=== PATIENT | male | born 1980 | race Caucasian/White ===

== ENCOUNTER 2017-02-23 22:49 | Emergency (ER) | payer SELFPAY ==
[~2017-02-23] VITALS: Ht 177.8 cm; Wt 102.0 kg
[~2017-02-23 22:49] MED LIST: PROM25TA5 PO; VITAMINS
[2017-02-23 22:54] VITALS: BP 162/102; PULSE 102; RESP 18; TEMP 98.5; O2SAT 98
[2017-02-23] MEDS ORDERED: SODIUM CHLOR 0.9% 1000 ML INJ 1,000 ML IV SCH (23:05)
[2017-02-23] MEDS ORDERED: FISH1000 PO (23:08)
[2017-02-23] MEDS ORDERED: MULTTAB67 PO (23:08)
[2017-02-23] MEDS ORDERED: VITA100T15 PO (23:09)
[2017-02-23] MEDS ORDERED: POTA99TA4 PO (23:09)
[2017-02-23] MEDS ORDERED: LEDI1TAB PO (23:09)
[2017-02-23] MEDS ORDERED: SODIUM CHLORIDE 0.9% FLUSH 10 ML FLUSH IV FLUSH PRN (23:15)
--- NOTE | 2017-02-23 23:18 | PD ---
HPI Chief Complaint: Respiratory Symptoms Time Seen by Provider: 23:00 Travel History International Travel<30 days: No Contact w/Intl Traveler<30days: No Traveled to known affect area: No History of Present Illness HPI 37-year-old male reports a sense of generalized fatigue and "not feeling right" for weeks. He is currently taking anti-hepatitis C virus medication. He orders it from [facility]. Part of his symptomology seems to include breathing difficulties, somewhat nonspecific, which is reported to be residual from exposure to rain and a subsequent URI type process. No abdominal pain. He does not have abdominal pain. He wonders if he might still be positive for hepatitis C. PFSH Past Medical History Hx Anticoagulant Therapy: No Arthritis: No Asthma: No Blood Disorders: No Anxiety: Yes Depression: Yes Heart Rhythm Problems: No Cancer: No Cardiovascular Problems: Yes (HTN) High Cholesterol: Yes Chemotherapy: No Chest Pain: No Congestive Heart Failure: No COPD: No Cerebrovascular Accident: No Diabetes: No Diminished Hearing: No Endocrine: No Gastrointestinal Disorders: Yes GERD: Yes Genitourinary: No Hepatitis: Yes (HEP C) Hiatal Hernia: No Hypertension: Yes Kidney Stones: Yes Musculoskeletal: No Neurologic: Yes Psychiatric: Yes Reproductive: No Respiratory: Yes Migraines: No Radiation Therapy: No Renal Failure: No Seizures: No Sickle Cell Disease: No Sleep Apnea: No Thyroid Disease: No Ulcer: No Past Surgical History Abdominal Surgery: Yes (INGUINAL HERNIA REPAIR) Appendectomy: Yes Cardiac Surgery: No Endocrine Surgery: No Eye Surgery: No Genitourinary Surgery: No Gynecologic Surgery: No Neurologic Surgery: Yes (SKULL FRACTURE REPAIR A CHILD) Oral Surgery: Yes (04/2008 TOOTH PULLED) Thoracic Surgery: No Other Surgery: Yes (RT HERNIA REPAIR) Social History Alcohol Use: Yes (QUIT) Tobacco Use: Yes (QUIT 2 YEARS AGO) Substance Use: Yes (Marijuana 3 days ago) Allergies-Medications (Allergen,Severity, Reaction): Coded Allergies: codeine (Unverified Allergy, Intermediate, ITCHING & SWELLING,HIVES, ) Reported Meds & Prescriptions Reported Meds & Active Scripts Active Reported Potassium 99 Mg Tablet 99 Mg PO DAILY Harvoni 90-400 mg Tablet (Ledipasvir/Sofosbuvir) 1 Each Tablet 1 Tab PO DAILY Vitamin B12 (Cyanocobalamin) 100 Mcg Tab 100 Mcg PO DAILY Fish Oil ([place]-3 Fatty Acids) 1,000 Mg Cap 1,000 Mg PO DAILY Multiple Vitamin 1 Tab 1 Tab PO DAILY Review of Systems Except as stated in HPI: all other systems reviewed are Neg Physical Exam Narrative GENERAL: Well-nourished well-developed 37-year-old male no acute distress speaking full sentences SKIN: Warm and dry. HEAD: Atraumatic. Normocephalic. EYES: Pupils equal and round. No scleral icterus. No injection or drainage. ENT: No nasal bleeding or discharge. Mucous membranes pink and moist. NECK: Trachea midline. No JVD. CARDIOVASCULAR: Regular rate and rhythm. RESPIRATORY: The lungs are clear. There is no tachypnea. GASTROINTESTINAL: Abdomen soft, non-tender, nondistended. Hepatic and splenic margins not palpable. MUSCULOSKELETAL: Extremities without clubbing, cyanosis, or edema. No obvious deformities. NEUROLOGICAL: Awake and alert. No obvious cranial nerve deficits. Motor grossly within normal limits. Five out of 5 muscle strength in the arms and legs. Normal speech. PSYCHIATRIC: Appropriate mood and affect; insight and judgment normal. Data Data Last Documented VS Vital Signs Date Time Temp Pulse Resp B/P Pulse Ox O2 Delivery O2 Flow Rate FiO2 02/23/17 23:45 98 Room Air 02/23/17 23:09 18 02/23/17 22:54 98.5 102 162/102 Vital signs reviewed Orders Complete Blood Count With Diff (02/23/17 23:05) Comprehensive Metabolic Panel (02/23/17 23:05) Iv Access Insert/Monitor (02/23/17 23:05) Ecg Monitoring (02/23/17 23:05) Oximetry (02/23/17 23:05) Sodium Chlor 0.9% 1000 Ml Inj (Ns 1000 M (02/23/17 23:05) Sodium Chloride 0.9% Flush (Ns Flush) (02/23/17 23:15) Chest, Single Ap (02/23/17 ) MDM Medical Decision Making Medical Screen Exam Complete: Yes Emergency Medical Condition: Yes Medical Record Reviewed: Yes Differential Diagnosis URI, liver failure, kidney failure, dehydration, anemia, hepatitis Narrative Course Initial work up started. Case d/w Dr Nevarez at 1153pm. Diagnosis Primary Impression: Malaise Referrals: Primary Care Physician 2 days Additional Instructions: You have a choice when it comes to health care, and we are glad that you chose [facility]. Hopefully, we have met your expectations on today's visit. You are welcome to return to [facility] at any time, as we are committed to meeting the health care needs of our community. Med/Other Pt SpecificInfo: No Change to Meds Disposition: 01 DISCHARGE HOME Condition: Michael Hopkins MD Feb 23, 2017 23:18
[2017-02-23 23:45] VITALS: O2SAT 98
[2017-02-24 00:14] LABS: CHLORIDE 103 MEQ/L (98-107); POTASSIUM 3.2 MEQ/L (3.5-5.1); SODIUM (NA) 139 MEQ/L (136-145)
--- NOTE | 2017-02-24 00:14 | RADRPT ---
EXAM DATE/TIME: 02/24/2017 00:00 [facility] COMPARISON: CHEST SINGLE AP, April 11, 2011, 18:53. INDICATIONS : Cough MEDICAL HISTORY : Hypertension. Hepatitis C. SURGICAL HISTORY : Appendectomy. Inguinal hernia repair.8 ENCOUNTER: Initial ACUITY: 2 weeks PAIN SCORE: 0/10 LOCATION: Bilateral chest FINDINGS: A single view of the chest demonstrates symmetric hypoinflation with some minimal atelectatic changes above the left hemidiaphragm. No confluent infiltrate or effusion. Accounting for the degree of insp iration, heart size is normal. Osseous structures are intact. CONCLUSION: 1. Hypoinflation with minimal atelectatic changes of the left hemidiaphragm. 2. Lungs are otherwise clear. Heart size is normal. Howard Aguirre MD on February 24, 2017 at 0:11 Board Certified Radiologist. This report was verified electronically.
[2017-02-24 00:17] LABS: AUTOMATED NEUTROPHIL # 4.8 TH/MM3 (1.8-7.7); BASOPHIL # 0.2 TH/MM3 (0-0.2); BASOPHIL % 2.1 % (0.0-2.0); EOSINOPHIL # 0.2 TH/MM3 (0-0.4); EOSINOPHIL % 2.1 % (0.0-4.0); HEMATOCRIT 48.8 % (39.0-51.0); HEMO FLAGS DIFF FINAL; LYMPHOCYTE # 2.5 TH/MM3 (1.0-4.8); MEAN CELL VOLUME 95.1 FL (80.0-100.0); MEAN CORPUSCULAR HEMOGLOBIN 31.7 PG (27.0-34.0); MEAN CORPUSCULAR HGB CONC 33.4 % (32.0-36.0); MONO % 6.7 % (0.0-8.0); NEUT % 59.1 % (16.0-70.0); PLATELET COUNT 189 TH/MM3 (150-450); RED BLOOD COUNT 5.13 MIL/MM3 (4.50-5.90); WHITE BLOOD COUNT 8.2 TH/MM3 (4.0-11.0)
[2017-02-24 00:18] LABS: ANION GAP 8 MEQ/L (5-15); BICARBONATE 28.4 MEQ/L (21.0-32.0); BLOOD UREA NITROGEN 11 MG/DL (7-18)
[2017-02-24 00:21] LABS: ALT (GPT) 50 U/L (12-78); AST (GOT) 29 U/L (15-37); GLOMERULAR FILTRATION RATE 69 ML/MIN (>89)
[2017-02-24 00:22] LABS: TOTAL BILIRUBIN ADULT 0.6 MG/DL (0.2-1.0)
[2017-02-24 00:23] LABS: ALKALINE PHOSPHATASE 72 U/L (45-117)
--- NOTE | 2017-02-24 01:29 | PD ---
Physical Exam Date Seen by Provider: Feb 24, 2017 Time Seen by Provider: 00:30 Narrative Accepted in transfer of care from Dr. Carson Data Data Last Documented VS Vital Signs Date Time Temp Pulse Resp B/P Pulse Ox O2 Delivery O2 Flow Rate FiO2 02/24/17 01:54 91 16 144/96 96 02/23/17 23:45 Room Air 02/23/17 22:54 98.5 Orders Complete Blood Count With Diff (02/23/17 23:05) Comprehensive Metabolic Panel (02/23/17 23:05) Iv Access Insert/Monitor (02/23/17 23:05) Ecg Monitoring (02/23/17 23:05) Oximetry (02/23/17 23:05) Sodium Chlor 0.9% 1000 Ml Inj (Ns 1000 M (02/23/17 23:05) Sodium Chloride 0.9% Flush (Ns Flush) (02/23/17 23:15) Chest, Single Ap (02/23/17 ) Potassium Chloride (Kcl) (02/24/17 01:45) Labs Laboratory Tests Test 02/23/17 23:40 White Blood Count 8.2 TH/MM3 Red Blood Count 5.13 MIL/MM3 Hemoglobin 16.3 GM/DL Hematocrit 48.8 % Mean Corpuscular Volume 95.1 FL Mean Corpuscular Hemoglobin 31.7 PG Mean Corpuscular Hemoglobin 33.4 % Concent Red Cell Distribution Width 12.0 % Platelet Count 189 TH/MM3 Mean Platelet Volume 8.4 FL Neutrophils (%) (Auto) 59.1 % Lymphocytes (%) (Auto) 30.0 % Monocytes (%) (Auto) 6.7 % Eosinophils (%) (Auto) 2.1 % Basophils (%) (Auto) 2.1 % Neutrophils # (Auto) 4.8 TH/MM3 Lymphocytes # (Auto) 2.5 TH/MM3 Monocytes # (Auto) 0.5 TH/MM3 Eosinophils # (Auto) 0.2 TH/MM3 Basophils # (Auto) 0.2 TH/MM3 CBC Comment DIFF FINAL Differential Comment Sodium Level 139 MEQ/L Potassium Level 3.2 MEQ/L Chloride Level 103 MEQ/L Carbon Dioxide Level 28.4 MEQ/L Anion Gap 8 MEQ/L Blood Urea Nitrogen 11 MG/DL Creatinine 1.20 MG/DL Estimat Glomerular Filtration 69 ML/MIN Rate Random Glucose 129 MG/DL Calcium Level 9.2 MG/DL Total Bilirubin 0.6 MG/DL Aspartate Amino Transf 29 U/L (AST/SGOT) Alanine Aminotransferase 50 U/L (ALT/SGPT) Alkaline Phosphatase 72 U/L Total Protein 7.3 GM/DL Albumin 4.1 GM/DL [facility] Medical Record Reviewed: Yes Supervised Visit with ISATU: No Interpretation(s) cxr: FINDINGS: A single view of the chest demonstrates symmetric hypoinflation with some minimal atelectatic changes above the left hemidiaphragm. No confluent infiltrate or effusion. Accounting for the degree of inspiration, heart size is normal. Osseous structures are intact. CONCLUSION: 1. Hypoinflation with minimal atelectatic changes of the left hemidiaphragm. 2. Lungs are otherwise clear. Heart size is normal. Howard Aguirre MD on February 24, 2017 at 0:11 Board Certified Radiologist. This report was verified electronically. Differential Diagnosis Accepted in transfer of care from Dr. Carson; please refer to his dictation Narrative Course Accepted in transfer of care from Dr. Carson for follow-up of pending labs and imaging studies and patient disposition Lab values are found to be grossly within normal range except for mild hypokalemia 3.2 patient given oral replacement imaging study reveals no lobar infiltrate mild atelectasis Patient stable for outpatient management and follow-up with his primary care provider Diagnosis Primary Impression: Malaise Additional Impression: Hypokalemia Referrals: Primary Care Physician 2 days Patient Instructions: General Instructions Additional Instruction: You have a choice when it comes to health care, and we are glad that you chose [facility]. Hopefully, we have met your expectations on today's visit. You are welcome to return to [facility] at any time, as we are committed to meeting the health care needs of our community. Add potassium containing foods and beverages to dietary intake. Med/Other Pt SpecificInfo: No Change to Meds Disposition: 01 DISCHARGE HOME Condition: Stable Kirsten Nevarez MD Feb 24, 2017 01:29
[2017-02-24] MEDS ORDERED: POTASSIUM CHLORIDE 20 MEQ CONTROLLED RELEASE TAB PO ONE (01:45)
[2017-02-24 01:54] VITALS: BP 144/96
== END 2017-02-24 01:57 | disposition home or self-care (01) ==
LOC: PHED 22:49
DX: R53.81 Other malaise (principal); E87.6 Hypokalemia; B19.20 Unspecified viral hepatitis C without hepatic coma; Z87.891 Personal history of nicotine dependence
CPT/HCPCS: 71010; 80053; 85025; 96360; 99284; J7030